=== PATIENT | male | born 1965 | race Caucasian/White ===

== ENCOUNTER 2021-06-11 14:15 | Inpatient (IN) | payer BC ==
--- NOTE | 2021-06-11 14:35 | ED ---
Psych HPI - General Stated Complaint: Sucide Time Seen by Provider: 06/11/21 14:15 Source: patient, EMS, RN notes reviewed Mode of arrival: EMS - History of Present Illness Initial Comments: 56-year-old male with a history depression who has previously been admitted to [facility] presents by EMS with complaints of feeling depressed and suicidal since yesterday. He states he's had financial problems also his mother is not doing well medically. He has no particular plan at this time however. He denies any drugs or alcohol at this time. No current complaints or modifying factors. MD Complaint: suicidal ideation, feels depressed - Related Data Home Medications Medication Instructions Recorded Confirmed Citalopram Hydrobromide [CeleXA] 40 mg PO DAILY 06/11/21 06/11/21 QUEtiapine FUMARATE 100 mg PO HS 06/11/21 06/11/21 Allergies Allergy/AdvReac Type Severity Reaction Status Date / Time No Known Allergies Allergy Unverified 06/11/21 15:11 Review of Systems ROS Statement: Those systems with pertinent positive or pertinent negative responses have been documented in the HPI. ROS Other: All systems not noted in ROS Statement are negative. General Exam - General Exam Comments Initial Comments: This is a well-developed well-nourished awake alert oriented 3 male General appearance: alert, in no apparent distress Head exam: Present: atraumatic, normocephalic, normal inspection Eye exam: Present: normal appearance, PERRL, EOMI. Absent: scleral icterus, conjunctival injection, periorbital swelling ENT exam: Present: normal exam, mucous membranes moist Neck exam: Present: normal inspection. Absent: tenderness, meningismus, ly mphadenopathy Respiratory exam: Present: normal lung sounds bilaterally. Absent: respiratory distress, wheezes, rales, rhonchi, stridor Cardiovascular Exam: Present: regular rate, normal rhythm, normal heart sounds. Absent: systolic murmur, diastolic murmur, rubs, gallop, clicks GI/Abdominal exam: Present: soft, normal bowel sounds. Absent: distended, tenderness, guarding, rebound, rigid Extremities exam: Present: normal inspection, full ROM, normal capillary refill. Absent: tenderness, pedal edema, joint swelling, calf tenderness Back exam: Present: normal inspection Neurological exam: Present: alert, oriented X3, CN II-XII intact Psychiatric exam: Present: depressed, flat affect, suicidal ideation Skin exam: Present: warm, dry, intact, normal color. Absent: rash Course Vital Signs 06/11/21 06/11/21 06/11/21 14:34 15:38 16:00 Temperature 97.6 F Pulse Rate 56 L Respiratory 16 18 18 Rate Blood Pressure 118/73 O2 Sat by Pulse 97 Oximetry Medical Decision Making - Medical Decision Making The patient was evaluated by the EPS service and will be admitted for inpatient evaluation and treatment - Lab Data Lab Results 06/11/21 06/11/21 Range/Units 16:13 17:59 Urine Opiates Screen Not Detected (NotDetected) Ur Oxycodone Screen Not Detected (NotDetected) Urine Methadone Screen Not Detected (NotDetected) Ur Propoxyphene Screen Not Detected (NotDetected) Ur Barbiturates Screen Not Detected (NotDetected) U Tricyclic Antidepress Detected H (NotDetected) Ur Phencyclidine Scrn Not Detected (NotDetected) Ur Amphetamines Screen Not Detected (NotDetected) U Methamphetamines Scrn Not Detected (NotDetected) U Benzodiazepines Scrn Not Detected (NotDetected) Urine Cocaine Screen Not Detected (NotDetected) U Marijuana (THC) Screen Not Detected (NotDetected) Coronavirus (PCR) Not Detected (Not Detectd) Disposition Clinical Impression: Depression, Suicidal ideation Disposition: TRANSFER TO PSYCH HOSP/UNIT Condition: Fair Referrals: Emily Victoria DO [Primary Care Provider] - 1-2 days
[2021-06-11 16:29] LABS: Amphetamine Screen,Urine Not Detected (NotDetected); Barbiturate Screen,Urine Not Detected (NotDetected); Benzodiazepines Screen,Urine Not Detected (NotDetected); Cocaine Screen,Urine Not Detected (NotDetected); Methadone Screen, Urine Not Detected (NotDetected); Opiate Screen,Urine Not Detected (NotDetected); Oxycodone Screen, Urine Not Detected (NotDetected); Phencyclidine Screen,Urine Not Detected (NotDetected); Tricyclic Antidepressant,Urine Detected (NotDetected); Urn Cannabinoid Scrn Not Detected (NotDetected)
[2021-06-11] MEDS ORDERED: MAGNESIUM HYDROXIDE 2,400 MG/10 ML CUP PO PRN (19:27)
[2021-06-11] MEDS ORDERED: MAG HYDROX/AL HYDROX/SIMETH 30 ML CUP PO PRN (19:27)
[2021-06-11] MEDS ORDERED: ACETAMINOPHEN TAB 325 MG TAB PO PRN (19:27)
[2021-06-11] MEDS ORDERED: LORazepam 1 MG TAB PO PRN (19:27)
[2021-06-11] MEDS ORDERED: LORazepam 2 MG/ML INJ IM PRN (19:30)
[2021-06-11] MEDS ORDERED: HALOPERIDOL LACTATE 5 MG/ML 1 ML VIAL IM PRN (19:30)
[2021-06-11] MEDS ORDERED: haloperidoL 5 MG TAB PO PRN (19:30)
[2021-06-11] MEDS: QUEtiapine 100 MG TAB PO SCH (21:06)
--- NOTE | 2021-06-11 23:51 | P.MDCNMH ---
History of Present Illness H&P Date: 06/11/21 Chief Complaint: deperssion 56 year old male with depression patient comes in due to suicidal ideation , reporting overwhelming depression and anxiety , due to social stressors , he reports that last week he was having paranoid ideation patient denies any chest pain trouble breathing , coughing, fever, chills, abd pain , nausea and vomiting denies any changes in bowel or urinary habits Review of Systems Pertinent positives as noted in HPI. All other systems were reviewed and are negative Past Medical History Past Medical History: No Reported History History of Any Multi-Drug Resistant Organisms: None Reported Past Surgical History: No Surgical Hx Reported Smoking Status: Current every day smoker - Past Family History Family Family Medical History: No Reported History Medications and Allergies Home Medications Medication Instructions Recorded Confirmed Type Citalopram Hydrobromide [CeleXA] 40 mg PO DAILY 06/11/21 06/11/21 History QUEtiapine FUMARATE 100 mg PO HS 06/11/21 06/11/21 History Allergies Allergy/AdvReac Type Severity Reaction Status Date / Time No Known Allergies Allergy Unverified 06/11/21 15:11 Physical Exam Vitals: Vital Signs Temp Pulse Pulse Resp BP BP Pulse Ox 06/11/21 21:09 97.0 F L 59 L 16 116/70 06/11/21 20:58 98 F 54 L 16 105/65 96 06/11/21 16:00 18 06/11/21 15:38 18 06/11/21 14:34 97.6 F 56 L 16 118/73 97 Intake and Output 06/11/21 06/11/21 06/12/21 14:59 22:59 06:59 Other: Weight 81.647 kg 91.1 kg Constitutional: No acute distress, conversant, pleasant Eyes: Anicteric sclerae, moist conjunctiva, Pupils equal round reactive to light ENMT: NC/AT Oropharynx clear, no erythema, or exudates Neck: Supple, FROM, no masses, or JVD No carotid bruits No thyromegaly Lungs: Clear to auscultation Clear to percussion Normal respiratory effort, no accessory muscle use Cardiovascular: Heart regular in rate and rhythm, No murmurs, gallops, or rubs No peripheral edema Abdominal: Soft Nontender, no guarding, rebound or rigidity Abdomen moving with respiration Normoactive bowel sounds No hepatomegaly, No splenomegaly No palpable mass No abdominal wall hernia noted Skin: Normal temperature, tone, texture, turgor No induration No subcutaneous nodules No rash, lesions No ulcers Extremities: No digital cyanosis No clubbing Pedal pulses intact and symmetrical Radial pulses intact and symmetrical No calf tenderness Psychiatric: Alert and oriented to person, place and time depressed affect Neuro Muscles Strength 5/5 in all 4 extremities Sensation to light touch grossly present throughout Cranial nerves II-XII grossly intact No focal sensory deficits Lymphatics: no palpable cervical or supraclavicular , or inguinal lymph nodes Cranial Nerve Examination - Cranial Nerves Cranial Nerve II- Optic: Intact Cranial Nerve III- Oculomotor: Intact Cranial Nerve IV- Trochlear: Intact Cranial Nerve V- Trigeminal: Intact Cranial Nerve - Abducens: Intact Cranial Nerve VII- Facial: Intact Cranial Nerve VIII- Auditory: Intact Cranial Nerve IX- Glossopharyngeal: Intact Cranial Nerve X- Vagus: Intact Cranial Nerve XI- Accessory: Intact Cranial Nerve XII- Hypoglossal: Intact Results Labs: Abnormal Lab Results - Last 24 Hours (Table) 06/11/21 Range/Units 16:13 U Tricyclic Antidepress Detected H (NotDetected) Assessment and Plan Assessment: depression and suicidal ideation management per psych patient denies any smoking or daily drinking , he denies any current drug abuse follow up labs Thank you for allowing us to participate in the care of this patient. We will follow peripherally. Do not hesitate to contact us with questions. Someone can be reached from the [facility] hospitalist group at all hours of the day at [phone].
[2021-06-12 07:05] VITALS: RESP 18
[2021-06-12 07:30] LABS: Basophils # (A) 0.1 k/uL (0-0.2); Basophils % (A) 1 %; Eosinophils # (A) 0.2 k/uL (0-0.7); Eosinophils % (A) 3 %; HCT 45.4 % (39.0-53.0); HGB 15.2 gm/dL (13.0-17.5); Lymphocytes # (A) 2.3 k/uL (1.0-4.8); Lymphocytes % (A) 32 %; MCH 30.8 pg (25.0-35.0); MCHC 33.5 g/dL (31.0-37.0); MCV 91.8 fL (80.0-100.0); Mean Platelet Volume 7.5; Monocytes # (A) 0.4 k/uL (0-1.0); Monocytes % (A) 6 %; Neutrophils # (A) 3.9 k/uL (1.3-7.7); Neutrophils % (A) 56 %; Platelet Count 225 k/uL (150-450); RBC 4.95 m/uL (4.30-5.90); RDW 13.4 % (11.5-15.5)
[2021-06-12 08:27] LABS: Albumin 4.4 g/dL (3.5-5.0); Calcium 10.4 mg/dL (8.4-10.2); Potassium 4.7 mmol/L (3.5-5.1); Total Bilirubin 0.5 mg/dL (0.2-1.3); Total Protein 7.3 g/dL (6.3-8.2)
[2021-06-12] MEDS ORDERED: CITALOPRAM HYDROBROMIDE 20 MG TAB PO SCH (09:00)
--- NOTE | 2021-06-12 11:13 | P.HP ---
Psychiatric H&P - . H&P Date: 06/12/21 History & Physical: Allergies Allergy/AdvReac Type Severity Reaction Status Date / Time No Known Allergies Allergy Verified 06/12/21 01:02 Vital Signs Temp 97.0 F L 06/11/21 21:09 Pulse 61 06/12/21 07:05 Resp 18 06/12/21 07:05 BP 91/53 06/12/21 07:05 Pulse Ox 96 06/11/21 20:58 Intake & Output 06/11/21 06/12/21 06/12/21 18:59 06:59 18:59 Weight 81.647 kg 91.1 kg Laboratory Last Values WBC 7.0 k/uL (3.8-10.6) 06/12/21 07:00 RBC 4.95 m/uL (4.30-5.90) 06/12/21 07:00 Hgb 15.2 gm/dL (13.0-17.5) 06/12/21 07:00 Hct 45.4 % (39.0-53.0) 06/12/21 07:00 MCV 91.8 fL (80.0-100.0) 06/12/21 07:00 MCH 30.8 pg (25.0-35.0) 06/12/21 07:00 MCHC 33.5 g/dL (31.0-37.0) 06/12/21 07:00 RDW 13.4 % (11.5-15.5) 06/12/21 07:00 Plt Count 225 k/uL (150-450) 06/12/21 07:00 MPV 7.5 06/12/21 07:00 Neutrophils % 56 % 06/12/21 07:00 Lymphocytes % 32 % 06/12/21 07:00 Monocytes % 6 % 06/12/21 07:00 Eosinophils % 3 % 06/12/21 07:00 Basophils % 1 % 06/12/21 07:00 Neutrophils # 3.9 k/uL (1.3-7.7) 06/12/21 07:00 Lymphocytes # 2.3 k/uL (1.0-4.8) 06/12/21 07:00 Monocytes # 0.4 k/uL (0-1.0) 06/12/21 07:00 Eosinophils # 0.2 k/uL (0-0.7) 06/12/21 07:00 Basophils # 0.1 k/uL (0-0.2) 06/12/21 07:00 Sodium 140 mmol/L (137-145) 06/12/21 07:00 Potassium 4.7 mmol/L (3.5-5.1) 06/12/21 07:00 Chloride 105 mmol/L (98-107) 06/12/21 07:00 Carbon Dioxide 27 mmol/L (22-30) 06/12/21 07:00 Anion Gap 8 mmol/L 06/12/21 07:00 BUN 15 mg/dL (9-20) 06/12/21 07:00 Creatinine 1.09 mg/dL (0.66-1.25) 06/12/21 07:00 Est GFR (CKD-EPI)AfAm 87 (>60 ml/min/1.73 sqM) 06/12/21 07:00 Est GFR (CKD-EPI)NonAf 76 (>60 ml/min/1.73 sqM) 06/12/21 07:00 Glucose 98 mg/dL (74-99) 06/12/21 07:00 Calcium 10.4 mg/dL (8.4-10.2) H 06/12/21 07:00 Total Bilirubin 0.5 mg/dL (0.2-1.3) 06/12/21 07:00 AST 23 U/L (17-59) 06/12/21 07:00 ALT 19 U/L (4-49) 06/12/21 07:00 Alkaline Phosphatase 68 U/L (38-126) 06/12/21 07:00 Total Protein 7.3 g/dL (6.3-8.2) 06/12/21 07:00 Albumin 4.4 g/dL (3.5-5.0) 06/12/21 07:00 TSH 1.340 mIU/L (0.465-4.680) 06/12/21 07:00 Urine Opiates Screen Not Detected (NotDetected) 06/11/21 16:13 Ur Oxycodone Screen Not Detected (NotDetected) 06/11/21 16:13 Urine Methadone Screen Not Detected (NotDetected) 06/11/21 16:13 Ur Propoxyphene Screen Not Detected (NotDetected) 06/11/21 16:13 Ur Barbiturates Screen Not Detected (NotDetected) 06/11/21 16:13 U Tricyclic Antidepress Detected (NotDetected) H 06/11/21 16:13 Ur Phencyclidine Scrn Not Detected (NotDetected) 06/11/21 16:13 Ur Amphetamines Screen Not Detected (NotDetected) 06/11/21 16:13 U Methamphetamines Scrn Not Detected (NotDetected) 06/11/21 16:13 U Benzodiazepines Scrn Not Detected (NotDetected) 06/11/21 16:13 Urine Cocaine Screen Not Detected (NotDetected) 06/11/21 16:13 U Marijuana (THC) Screen Not Detected (NotDetected) 06/11/21 16:13 Coronavirus (PCR) Not Detected (Not Detectd) 06/11/21 17:59 06/12/21 11:07 IDENTIFYING DATA: Patient is a 56-year-old male with history of depression and anxiety who currently lives with his mother in a house the . was no kids. He works at [employer] is on medical leave of absence. HPI: Patient presented to the hospital yesterday and according to ER report was complaining of suicidal thoughts and depression. The ER also reported that patient had recently been at [facility] and was discharged. Patient's urine drug screen was positive for TCAs. Patient was seen wandering the hallways today and agreeable to speech language pathologist prn. Patient is currently voluntary on the Cliq t. He states that he has been feeling suicidal and depressed recently. He claims that he was recently released from [facility] and claims that he's been taking his medications which include Celexa and Seroquel. States that when they were helping him however are not at this time. He states that 2 days ago he started feeling suicidal however has no plan. He claims that he is dealing with his mom "getting older and having dementia". He also states that he has been having financial problems and trouble keeping up with his bills. He states that he was having anxiety however today he claims that the anxiety is improved. He states that he does not have any sleeping problems or problems with appetite. He is not endorsing any paranoia today. Patient denies any current suicidal or homicidal ideations intent or plan. At this time patient denies any auditory or visual hallucinations. Patient denies any flight of ideas racing thoughts and increased in goal directed behavior. Patient admits to using cigarettes daily and denies any other recreational drug use. PAST PSYCHIATRIC HISTORY: Patient states that his history depression and anxiety. Who is on Celexa and Seroquel. Patient was last psychiatrically hospitalized at [facility] and also at [facility]. [facility] this year. He states that he currently follows up with [facility]. He states that in 2011. Apparently walked into traffic and attempted overdose before that. PMH:denies ALLERGIES: as per EMR CHEMICAL DEPENDENCY HISTORY: as per HPI FAMILY PSYCHIATRIC/SUBSTANCE USE HISTORY: denies SOCIAL HISTORY: Patient was born and raised in [place], [place]. He states that he completed high school. He currently works at [employer] however is on a medical leave of absence for depression. He currently lives with his mother and houses single has no kids. He has history of 4 DUIs in the past and has served [facility] time. MENTAL STATUS EXAM: General Appearance: Patient appears to be balding, light hair, stated age is alert, directable, and attempts to cooperate. Patient appears to have fair hygiene and grooming. Behavior: Patient is seated without any agitated behavior. Speech: Patient's speech is fluent and nonpressured. Soft tone of voice Mood/Affect: Patient reports their mood is depressed, affect is congruent and constricted. Suicidality/Homicidality: Patient denies having any homicidal ideation intent or plan. Denies any suicidal ideations intent or plan Perceptions: Patient denies any visual hallucinations and denies any auditory hallucinations Though content/process: There is no evidence of any delusional thought content and thought process is linear and goal-directed. Vague at times Memory and concentration: AOX3, grossly intact for the purposes of this session. Can spell "WORLD" backwards Judgment and insight: poor STRENGTHS/WEAKNESSES: strength is that patient is resilient. Weakness is that patient has poor judgment and is impulsive INTELLECT: average IMPRESSIONS: Major depressive disorder, without psychotic features Anxiety disorder unspecified Nicotine dependence PLAN: -Patient is admitted under voluntary status to [facility]HU for stabilization of psychiatric symptoms and safety. Patient has signed adult voluntary form and medication consent and is placed in patient's chart. -Medications : Will start patient on Cymbalta 30 mg daily at bedtime for anxiety/mood. Continue Seroquel 100 mg daily at bedtime as a mood adjunct/insomnia. -Ativan and Haldol PRN for agitation/aggression -Patient was informed of the risks, benefits and side effects of the medication and patient verbally consented to taking the medications. Patient signed med consent form and was placed in chart. -Internal Medicine consult to perform medical evaluation and physical. -NRT - nicotine patch -SW on board for discharge planning. Encourage patient to participate in groups to work on coping skills.
[2021-06-12 13:12] LABS: Chol/HDL Ratio 6.25 Ratio; HDL Cholesterol 36.5 mg/dL (40.00-60.00); LDL Cholesterol,Calculated 154.3 mg/dL (0.0-131.0); VLDL Calculation 37.2 mg/dL (5.00-40.00)
[2021-06-12] MEDS: DULoxetine HCL 30 MG CAPSULE.DR PO SCH (20:14)
[2021-06-12] MEDS: QUEtiapine 100 MG TAB PO SCH (20:14)
[2021-06-13 06:40] VITALS: BP 103/60; PULSE 80; TEMP 96.5
[2021-06-13] MEDS ORDERED: ONDANSETRON 4 MG TAB PO PRN (11:38)
--- NOTE | 2021-06-13 11:42 | P.PN ---
Progress Note - Text Progress Note Date: 06/13/21 Interval History: Patient was seen wandering the hallways and was directable and agreeable to remi johnson with [employer] in the office. He states that he is not feeling too good today and described feeling nauseous and having an upset stomach. Patient was agreeable to take Zofran today. He states that other than not his depression and anxiety have been mildly improving. He reported no problems taking the Cymbalta last night. He states that he is able to sleep throughout the night fairly well. He claims that he did not go to groups yesterday overall category groups today. He claims that his appetite as been fair. At this time patient denies any suicidal or homical ideations, intent or plan. Patient denies any auditory, visual hallucinations and denies any paranoia or delusions. Patient denies any side effects from the medications and has been compliant with meds. Mental Status Exam: General Appearance: Patient appears to be balding, light hair, stated age is alert, directable, and attempts to cooperate. Patient appears to have fair hygiene and grooming. Behavior: Patient is seated without any agitated behavior. Speech: Patient's speech is fluent and nonpressured. Soft tone of voice Mood/Affect: Patient reports their mood is mildly improving, affect is congruent and constricted. Suicidality/Homicidality: Patient denies having any homicidal ideation intent or plan. Denies any suicidal ideations intent or plan Perceptions: Patient denies any visual hallucinations and denies any auditory hallucinations Though content/process: There is no evidence of any delusional thought content and thought process is linear and goal-directed. Vague at times Memory and concentration: AOX3, grossly intact for the purposes of this session. Judgment and insight: poor, improving mildly Assessment Major depressive disorder, without psychotic features Anxiety disorder unspecified Nicotine dependence Plan: -Patient continues to meet criteria for inpatient psychiatric admission for symptom stabilization and safety. Patient has signed adult voluntary form and medication consent and was placed in patient's chart. -Medications: Continue with Cymbalta 30 mg daily at bedtime for anxiety/mood. Continue with Seroquel 100 mg daily at bedtime for mood adjunct/insomnia. -When necessary Ativan and Haldol for agitation/aggression. -NRT - nicotine patch -SW on board for discharge planning. Encouraged the patient to participate in milieu.
[2021-06-13] MEDS: QUEtiapine 100 MG TAB PO SCH (19:54)
[2021-06-13] MEDS: DULoxetine HCL 30 MG CAPSULE.DR PO SCH (19:54)
--- NOTE | 2021-06-14 12:38 | P.DS ---
Providers Date of admission: 06/11/21 19:24 Expected date of discharge: 06/14/21 Attending physician: Francis Shipley MD Consults: 06/11/21 19:27 Consult Physician Routine Consulting Provider: Nallely Zuniga Consult Reason/Comments: H and P Do you want consulting provider notified?: Yes Primary care physician: Emily Victoria, DO - Discharge Diagnosis(es) (1) Major depressive disorder Current Visit: Yes Status: Acute Priority: High (2) Anxiety disorder Current Visit: Yes Status: Chronic Priority: Medium (3) Nicotine dependence Current Visit: Yes Status: Chronic Priority: Medium Hospital Course: Admission HPI: Initial psychiatric evaluation was completed by Dr. Doss on 06/12/2021 who wrote: "Patient is a 56-year-old male with history of depression and anxiety who currently lives with his mother in a house the [place] was no kids. He works at [employer] is on medical leave of absence. Patient presented to the hospital yesterday and according to ER report was complaining of suicidal thoughts and depression. The ER also reported that patient had recently been at [facility] and was discharged. Patient's urine drug screen was positive for TCAs. Patient was seen wandering the hallways today and agreeable to script writer. Patient is currently voluntary on the unit. He states that he has been feeling suicidal and depressed recently. He claims that he was recently released from [facility] and claims that he's been taking his medications which include Celexa and Seroquel. States that when they were helping him however are not at this time. He states that 2 days ago he started feeling suicidal however has no plan. He claims that he is dealing with his mom "getting older and having dementia". He also states that he has been having financial problems and trouble keeping up with his bills. He states that he was having anxiety however today he claims that the anxiety is improved. He states that he does not have any sleeping problems or problems with appetite. He is not endorsing any paranoia today. Patient denies any current suicidal or homicidal ideations intent or plan. At this time patient denies any auditory or visual hallucinations. Patient denies any flight of ideas racing thoughts and increased in goal directed behavior. Patient admits to using cigarettes daily and denies any other recreational drug use. Patient states that his history depression and anxiety. Who is on Celexa and Seroquel. Patient was last psychiatrically hospitalized at [facility] and also at [facility] this year. He states that he currently follows up with [facility]. He states that in 2012. Apparently walked into traffic and attempted overdose before that." Hospital course: Upon admission to the unit patient was initially noted to be depressed with a congruent affect. Patient was however directable and agreeable to commence treatment. Patient got along well with other patients on the unit and followed unit protocol. Patient was compliant with the medications and denied any side effects throughout hospital course. Patient was started on Cymbalta and continued on Seroquel for management of his depression. Patient spoke of his stressors and engaged in therapy both group and individual. Patient was also seen by medical team for history and physical exam. Over the course of the hospitalization, the patient gradually improved with regards to his suicidality, mood, and sleep. The patient became more future oriented and improved in regards to his insight and judgment. The patient tolerated his medication change to Cymbalta well. On the day of discharge, the patient is not endorsing any suicidal or homicidal ideation, intention, and/or plan. The patient expresses that he used to feel suicidal he knows to come to the hospital. He remains future oriented and 6 sided to return back to work. The patient is not endorsing any access to firearms or other weapons. He is not reporting any auditory or visualizations. He is denying any paranoia or other delusions. The patient does not have any significant history of substance abuse however was counseled on abstaining from all substances including alcohol and marijuana. The patient was also counseled on nicotine cessation. The patient was also counseled on his medications the need for regular compliance and was encouraged to follow-up with his outpatient appointments for mental health and for primary care. Prior to discharge, family meeting will be arranged by social service agency director to answer any questions and ensure safety Mental status exam: General Appearance: Patient appears to be stated age is alert, pleasant, and cooperative. Patient is in no acute distress and has fair hygiene and grooming Behavior: Patient is calmly seated without any agitated behavior. Eye contact is appropriate. Psychomotor activity is normal. Speech: Patient's speech is fluent and nonpressured. Mood/Affect: Patient reports their mood is "much better", affect is congruent and euthymic. Slightly constricted in range at baseline. Suicidality/Homicidality: Patient denies having any suicidal or homicidal ideation intent or plan. Perceptions: Patient denies any auditory or visual hallucinations. Though content/process: There is no evidence of any delusional thought content and thought process is linear and goal-directed. Patient is future oriented. Memory and concentration: AOX3, grossly intact for the purposes of this session. Can spell "WORLD" backwards correctly. Judgment and insight: Improved Vital Signs Temp 96.5 F L 06/13/21 06:39 Pulse 80 06/13/21 06:39 Resp 18 06/13/21 06:39 BP 103/60 06/13/21 06:39 Pulse Ox 96 06/11/21 20:58 Impression: Major depressive disorder, without psychotic features Anxiety disorder unspecified Nicotine dependence Plan: -Continue with discharge today as patient has improved and stabilized psychiatrically and is not currently an imminent threat to himself and/or others. Patient will remain at chronically elevated risk for harm to self and/or others due to his prior attempts at suicide as well as his age and race demographics. -Continue medications: Cymbalta 30 mg by mouth daily for depression/anxiety Seroquel 100 mg daily at bedtime for mood augmentation/insomnia -Patient was counseled on the need for medication compliance and appropriate follow-up at mental health and also primary care for medical issues. Patient verbalized understanding and agreed. -Social work to arrange for and conduct family meeting to ensure safety upon discharge and answer any questions/concerns. Social work also to arrange for patients follow up appointments at [facility] for psychiatric care along with follow up with primary care provider. -Patient counseled on abstaining from recreational drugs and marijuana and a lcohol. Was informed/educated on the adverse effects on their physical and mental health. Patient verbally agreed and understood. -Patient was instructed to return to the hospital or seek immediate medical care if their psychiatric or medical symptoms do worsen or reoccur. -Psychoeducation and supportive therapy provided to patient. Risks and benefits of pharmacological treatment versus the risks and benefits of nontreatment weight and discussed. Informed consent discussion held. Common side effects of psychotropics discussed such as, but not limited to headache, GI disturbance, sexual dysfunction, movement disorders, sedation, and orthostatic hypotension. Life threatening and blackbox warnings of prescribed medications also discussed. Potential risks of operating a vehicle or heavy machinery discussed with patient at length. Advised on importance of compliance and a reliable and responsible manner. Patient advised to review FDA consumer labeling of all medications prior to taking. Patient verbalized understanding of potential risks, and agrees with current treatment plan. Patient advised to medically contact physician/emergency personnel if any acute changes in condition occur. Allergies Allergy/AdvReac Type Severity Reaction Status Date / Time No Known Allergies Allergy Verified 06/12/21 01:02 Laboratory Results WBC 7.0 k/uL (3.8-10.6) 06/12/21 07:00 RBC 4.95 m/uL (4.30-5.90) 06/12/21 07:00 Hgb 15.2 gm/dL (13.0-17.5) 06/12/21 07:00 Hct 45.4 % (39.0-53.0) 06/12/21 07:00 MCV 91.8 fL (80.0-100.0) 06/12/21 07:00 MCH 30.8 pg (25.0-35.0) 06/12/21 07:00 MCHC 33.5 g/dL (31.0-37.0) 06/12/21 07:00 RDW 13.4 % (11.5-15.5) 06/12/21 07:00 Plt Count 225 k/uL (150-450) 06/12/21 07:00 MPV 7.5 06/12/21 07:00 Neutrophils % 56 % 06/12/21 07:00 Lymphocytes % 32 % 06/12/21 07:00 Monocytes % 6 % 06/12/21 07:00 Eosinophils % 3 % 06/12/21 07:00 Basophils % 1 % 06/12/21 07:00 Neutrophils # 3.9 k/uL (1.3-7.7) 06/12/21 07:00 Lymphocytes # 2.3 k/uL (1.0-4.8) 06/12/21 07:00 Monocytes # 0.4 k/uL (0-1.0) 06/12/21 07:00 Eosinophils # 0.2 k/uL (0-0.7) 06/12/21 07:00 Basophils # 0.1 k/uL (0-0.2) 06/12/21 07:00 Sodium 140 mmol/L (137-145) 06/12/21 07:00 Potassium 4.7 mmol/L (3.5-5.1) 06/12/21 07:00 Chloride 105 mmol/L (98-107) 06/12/21 07:00 Carbon Dioxide 27 mmol/L (22-30) 06/12/21 07:00 Anion Gap 8 mmol/L 06/12/21 07:00 BUN 15 mg/dL (9-20) 06/12/21 07:00 Creatinine 1.09 mg/dL (0.66-1.25) 06/12/21 07:00 Est GFR (CKD-EPI)AfAm 87 (>60 ml/min/1.73 sqM) 06/12/21 07:00 Est GFR (CKD-EPI)NonAf 76 (>60 ml/min/1.73 sqM) 06/12/21 07:00 Glucose 98 mg/dL (74-99) 06/12/21 07:[address] Glu mg/dL 88 06/12/21 07:00 Hemoglobin A1c 4.7 % (4.0-6.0) 06/12/21 07:00 Calcium 10.4 mg/dL (8.4-10.2) H 06/12/21 07:00 Total Bilirubin 0.5 mg/dL (0.2-1.3) 06/12/21 07:00 AST 23 U/L (17-59) 06/12/21 07:00 ALT 19 U/L (4-49) 06/12/21 07:00 Alkaline Phosphatase 68 U/L (38-126) 06/12/21 07:00 Total Protein 7.3 g/dL (6.3-8.2) 06/12/21 07:00 Albumin 4.4 g/dL (3.5-5.0) 06/12/21 07:00 Triglycerides 186.00 mg/dL (0.00-149.00) H 06/12/21 07:00 Cholesterol 228.00 mg/dL (0.00-200.00) H 06/12/21 07:00 LDL Cholesterol, Calc 154.3 mg/dL (0.0-131.0) H 06/12/21 07:00 VLDL Cholesterol, Calc 37.20 mg/dL (5.00-40.00) 06/12/21 07:00 HDL Cholesterol 36.50 mg/dL (40.00-60.00) L 06/12/21 07:00 Cholesterol/HDL Ratio 6.25 Ratio 06/12/21 07:00 TSH 1.340 mIU/L (0.465-4.680) 06/12/21 07:00 Urine Opiates Screen Not Detected (NotDetected) 06/11/21 16:13 Ur Oxycodone Screen Not Detected (NotDetected) 06/11/21 16:13 Urine Methadone Screen Not Detected (NotDetected) 06/11/21 16:13 Ur Propoxyphene Screen Not Detected (NotDetected) 06/11/21 16:13 Ur Barbiturates Screen Not Detected (NotDetected) 06/11/21 16:13 U Tricyclic Antidepress Detected (NotDetected) H 06/11/21 16:13 Ur Phencyclidine Scrn Not Detected (NotDetected) 06/11/21 16:13 Ur Amphetamines Screen Not Detected (NotDetected) 06/11/21 16:13 U Methamphetamines Scrn Not Detected (NotDetected) 06/11/21 16:13 U Benzodiazepines Scrn Not Detected (NotDetected) 06/11/21 16:13 Urine Cocaine Screen Not Detected (NotDetected) 06/11/21 16:13 U Marijuana (THC) Screen Not Detected (NotDetected) 06/11/21 16:13 Coronavirus (PCR) Not Detected (Not Detectd) 06/11/21 17:59 Patient Condition at Discharge: Stable Plan - Discharge Summary Discharge Rx Participant: Yes New Discharge Prescriptions: New DULoxetine HCL [Cymbalta] 30 mg PO HS 30 Days QUEtiapine [SEROquel] 100 mg PO HS 30 Days tab Discontinued QUEtiapine FUMARATE 100 mg PO HS Citalopram Hydrobromide [CeleXA] 40 mg PO DAILY Discharge Medication List DULoxetine HCL [Cymbalta] 30 mg PO HS 30 Days 06/14/21 [Rx] QUEtiapine [SEROquel] 100 mg PO HS 30 Days tab 06/14/21 [Rx] Follow up Appointment(s)/Referral(s): Kathia Orourke [Other] - 06/18/21 1:45 pm (Follow-up appointment with [facility] via telehealth. ) Emily Victoria DO [Primary Care Provider] - 1-2 days Activity/Diet/Wound Care/Special Instructions: Activity and diet as tolerated. Avoid the use of street drugs and alcohol. Take all medications as prescribed. When you are in need of refills on your medications please contact your medical provider and/or outpatient psychiatrist to have this done. Please go to scheduled outpatient appointment for aftercare treatment. If symptoms return or become worse, call the crisis line at and/or go to the nearest emergency room for evaluation. Discharge Disposition: HOME SELF-CARE
== END 2021-06-14 16:11 | disposition home or self-care (01) | DRG 881 ==
LOC: EC 14:15 → 3MHU 19:24
PROVIDERS: ADMIT Psychiatry & Neurology Psychiatry; ATTEND Psychiatry & Neurology Psychiatry
DX: F32.9 Major depressive disorder, single episode, unspecified (principal); R45.851 Suicidal ideations; F41.9 Anxiety disorder, unspecified; G47.00 Insomnia, unspecified; Z59.9 Problem related to housing and economic circumstances, unspecified; F17.210 Nicotine dependence, cigarettes, uncomplicated; Z79.899 Other long term (current) drug therapy; Z20.822 Contact with and (suspected) exposure to COVID-19; Z71.6 Tobacco abuse counseling; Z71.41 Alcohol abuse counseling and surveillance of alcoholic; Z71.51 Drug abuse counseling and surveillance of drug abuser; Z91.51 Personal history of suicidal behavior
CPT/HCPCS: 80053; 80061; 80306; 82075; 83036; 84443; 85025; 87635; 99285